=== PATIENT | female | born 1960 | race African-American/Black ===

== ENCOUNTER 2021-12-21 12:59 | Emergency (ER) | payer OTHER ==
[~2021-12-21] VITALS: Ht 170.2 cm; Wt 90.7 kg
[2021-12-21 13:00] VITALS: BP_SYST 103
--- NOTE | 2021-12-21 13:00 | NUR ---
Patient triaged and placed in waiting room. VSS and patient appears in no acute distress at this time. Accompanied by SELF awaiting available bed, and MD notified of need for MSE.
--- NOTE | 2021-12-21 14:40 | NUR ---
ER DR. FLORES EXAMINING PT IN TRIAGE
[2021-12-21 14:45] VITALS: BP_SYST 110
[2021-12-21] MEDS ORDERED: HYDR-3917 PO ×2 (15:40→16:28)
[2021-12-21] MEDS ORDERED: IBUP-1969 PO ×2 (15:40→16:28)
--- NOTE | 2021-12-21 16:45 | NUR ---
Patient given written and verbal discharge instructions and verbalizes understanding. ER MD discussed with patient the results and treatment provided. Patient in stable condition. ID arm band removed. Rx of NORCO AND IBUPROFEN given. Patient educated on pain management and to follow up with PMD. Pain Scale 0/10. Opportunity for questions provided and answered. Medication side effect fact sheet provided.
== END 2021-12-21 14:45 | disposition home or self-care (01) ==
LOC: SED 12:59
DX: S06.310A Contusion and laceration of right cerebrum without loss of consciousness, initial encounter (principal); Z79.899 Other long term (current) drug therapy; W22.8XXA Striking against or struck by other objects, initial encounter; Y93.89 Activity, other specified; Y92.89 Other specified places as the place of occurrence of the external cause; Y99.8 Other external cause status
CPT/HCPCS: 70450-TC; 76376; 99284

== ENCOUNTER 2023-07-03 22:23 | Emergency (ER) | payer OTHER ==
[~2023-07-03] VITALS: Ht 170.2 cm; Wt 79.4 kg
[~2023-07-03 22:23] MED LIST: HYDR-3917 PO; IBUP-1969 PO
[2023-07-03 22:27] VITALS: BP_SYST 131; PULSE 75; RESP 16; TEMP 97.6; O2SAT 97
[2023-07-03 23:33] LABS: BASOPHILS % (AUTO) 0.8 % (0.0-2.0); EOSINOPHILS # (AUTO) 0.1 K/uL (0.0-0.4); EOSINOPHILS % (AUTO) 2.2 % (0.0-4.0); HEMATOCRIT 32.7 % (36-48); HEMOGLOBIN 10.8 g/dL (12.0-16.0); LYMPHOCYTES # (AUTO) 1.6 K/uL (1.0-5.5); LYMPHOCYTES % (AUTO) 43.2 % (20.5-51.5); MEAN CORPUSCULAR HEMOGLOBIN 29 pg (27-31); MEAN CORPUSCULAR HGB CONC 33 % (32-36); MEAN CORPUSCULAR VOLUME 88 fL (79.0-98.0); MONOCYTES # (AUTO) 0.5 K/uL (0.0-1.0); MONOCYTES % (AUTO) 11.9 % (1.7-9.3); NEUTROPHILS # (AUTO) 1.6 K/uL (1.8-7.7); NEUTROPHILS % (AUTO) 41.9 % (40.0-70.0); PLATELET COUNT (AUTO) 184 K/uL (130-430); RED BLOOD CELL COUNT(AUTO) 3.74 MIL/uL (4.2-6.2); RED CELL DISTRIBUTION WIDTH 13.3 % (9.0-15.0); WHITE BLOOD COUNT (AUTO) 3.8 K/uL (4.8-10.8)
[2023-07-03 23:49] LABS: COVID19 ANTIGEN SOFIA FIA NEGATIVE (NEGATIVE)
[2023-07-03 23:51] LABS: ANION GAP 7 (5-15); CALCIUM 8.8 mg/dL (8.4-11.0); CARBON DIOXIDE 30 mmol/L (23-29); CHLORIDE 103 mmol/L (98-107); GFR AFRICAN AMERICAN 65 mL/min (>90); GLUCOSE 95 mg/dL (74-106); POTASSIUM 3.1 mmol/L (3.5-5.1); SODIUM SERUM 140 mmol/L (136-145); UREA NITROGEN, BLOOD 18 mg/dL (8-21)
[2023-07-03 23:55] LABS: GFR NON AFRICAN-AMERICAN 53 mL/min (>90)
[2023-07-04 00:15] LABS: ALANINE AMINOTRANSFERASE 22 U/L (12-78); ALBUMIN 3.4 g/dL (3.4-4.8); ASPARTATE AMINOTRANSFERASE 8 U/L (10-37); LIPASE 46 U/L (16-77); TOTAL BILIRUBIN 0.6 mg/dL (0.0-1.0); TOTAL PROTEIN, SERUM 7.5 g/dL (6.4-8.3)
[2023-07-04 00:17] LABS: INFLUENZA TYPE A Negative (NEGATIVE); INFLUENZA TYPE B NEGATIVE (NEGATIVE)
[2023-07-04] MEDS: guaiFENesin/DEXTROMETHORPHAN 10 ML UDC PO ONE (02:15)
[2023-07-04] MEDS: predniSONE 20 MG TABLET PO ONE (02:15)
[2023-07-04] MEDS ORDERED: PRED20TA PO (02:39)
[2023-07-04] MEDS ORDERED: ROBAC PO (02:40)
[2023-07-04] MEDS ORDERED: GUAI5SYR PO (02:40)
[2023-07-04 03:01] VITALS: BP_SYST 126; PULSE 75; RESP 16; TEMP 97.6; O2SAT 97
== END 2023-07-04 03:03 | disposition home or self-care (01) ==
LOC: SED 22:23
DX: R07.9 Chest pain, unspecified (principal); Z79.899 Other long term (current) drug therapy; Z20.822 Contact with and (suspected) exposure to COVID-19
CPT/HCPCS: 99285; 71046; 87426; 80053; 83690; 85025; 85379; 84484; 36415; 93005; 87804 ×2; J7512

== ENCOUNTER 2023-07-29 14:47 | Emergency (ER) | payer OTHER ==
[~2023-07-29] VITALS: Ht 170.2 cm; Wt 74.8 kg
[2023-07-29 14:47] VITALS: BP_SYST 167; PULSE 82; RESP 18; TEMP 98.1; O2SAT 98
[~2023-07-29 14:47] MED LIST changes: +GUAI5SYR PO; +PRED20TA PO
[2023-07-29] MEDS: NACL 0.9% 1,000 ML IV ONE (15:42)
[2023-07-29] MEDS: ONDANSETRON HCL 4 MG/2 ML VIAL IVP ONE (15:42)
[2023-07-29 16:36] LABS: BASOPHILS % (AUTO) 0.3 % (0.0-2.0); EOSINOPHILS % (AUTO) 0.1 % (0.0-4.0); HEMATOCRIT 37.4 % (36-48); HEMOGLOBIN 12.3 g/dL (12.0-16.0); LYMPHOCYTES # (AUTO) 0.3 K/uL (1.0-5.5); LYMPHOCYTES % (AUTO) 8.5 % (20.5-51.5); MEAN CORPUSCULAR HEMOGLOBIN 29 pg (27-31); MEAN CORPUSCULAR HGB CONC 33 % (32-36); MEAN CORPUSCULAR VOLUME 89 fL (79.0-98.0); MONOCYTES # (AUTO) 0.2 K/uL (0.0-1.0); MONOCYTES % (AUTO) 7.1 % (1.7-9.3); NEUTROPHILS # (AUTO) 2.8 K/uL (1.8-7.7); PLATELET COUNT (AUTO) 187 K/uL (130-430); RED BLOOD CELL COUNT(AUTO) 4.21 MIL/uL (4.2-6.2); RED CELL DISTRIBUTION WIDTH 13.3 % (9.0-15.0); WHITE BLOOD COUNT (AUTO) 3.3 K/uL (4.8-10.8)
[2023-07-29] MEDS: MORPHINE 4 MG INJ. 4 MG/ML VIAL IVP ONE (16:36)
[2023-07-29 16:47] LABS: BILIRUBIN,URINE NEGATIVE (NEGATIVE); CLARITY/URINE CLEAR (CLEAR); COLOR,URINE YELLOW (YELLOW); GLUCOSE,URINE NEGATIVE (NEGATIVE); KETONES,URINE NEGATIVE (NEGATIVE); LEUKOCYTE ESTERASE ,URINE NEGATIVE (NEGATIVE); NITRITE, URINE NEGATIVE (NEGATIVE); PH,URINE 5.5 (5.0-8.0); PROTEIN URINE NEGATIVE (NEGATIVE); UROBILINOGEN,URINE 0.2 (0.2-1.0)
[2023-07-29 17:00] LABS: ALANINE AMINOTRANSFERASE 30 U/L (12-78); ALBUMIN 3.7 g/dL (3.4-4.8); ANION GAP 9 (5-15); ASPARTATE AMINOTRANSFERASE 23 U/L (10-37); CALCIUM 8.5 mg/dL (8.4-11.0); CARBON DIOXIDE 27 mmol/L (23-29); CHLORIDE 105 mmol/L (98-107); CREATININE 1.02 mg/dL (0.55-1.30); GFR AFRICAN AMERICAN 70 mL/min (>90); GLUCOSE 99 mg/dL (74-106); POTASSIUM 3.5 mmol/L (3.5-5.1); SODIUM SERUM 141 mmol/L (136-145); TOTAL BILIRUBIN 0.5 mg/dL (0.0-1.0); TOTAL PROTEIN, SERUM 8.6 g/dL (6.4-8.3); UREA NITROGEN, BLOOD 12 mg/dL (8-21)
[2023-07-29 17:04] LABS: BLOOD, URINE TRACE (NEGATIVE)
[2023-07-29 17:10] LABS: BILIRUBIN,DIRECT 0.1 mg/dL (0.0-0.3); GFR NON AFRICAN-AMERICAN 58 mL/min (>90); LIPASE 21 U/L (16-77)
[2023-07-29 17:45] LABS: RBC,URINE 0-3 /HPF (0-3); WBC,URINE 0-3 /HPF (0-3)
[2023-07-29 17:46] LABS: BACTERIA,URINE RARE /HPF (None Seen); MUCUS,URINE None Seen /LPF (None Seen); URIC ACID CRYSTALS,URINE 0-10 /HPF (None Seen)
[2023-07-29] MEDS ORDERED: ONDA-8 TL (18:47)
[2023-07-29] MEDS ORDERED: SULF1TAB47 PO (18:47)
[2023-07-29] MEDS ORDERED: DICY-14 PO (18:47)
[2023-07-29] MEDS: KETOROLAC TROMETHAMINE 60 MG/2 ML VIAL IM ONE (19:40)
[2023-07-29] MEDS: KETOROLAC TROMETHAMINE 30 MG VIAL IM ONE (19:42)
[2023-07-29 20:03] VITALS: BP_SYST 148; PULSE 84; RESP 18; TEMP 97.6; O2SAT 98
== END 2023-07-29 20:03 | disposition home or self-care (01) ==
LOC: SED 14:47
DX: R10.30 Lower abdominal pain, unspecified (principal); R11.2 Nausea with vomiting, unspecified; R19.7 Diarrhea, unspecified; Z79.899 Other long term (current) drug therapy
CPT/HCPCS: 99285; 74176; 96374; 96361; 96375; 80076; 80048; 81001; 83690; 85025; 84484; 36415; 93005; 96372; J1885; J2405; J2270; J7030; 81000; 81015